=== PATIENT | female | born 1990 | race Caucasian/White ===

== ENCOUNTER → 2016-05-08 | Day surgery (SDC) | payer OTHER ==
[~2016-05-08] VITALS: Ht 162.6 cm; Wt 66.7 kg
[~2016-05-08] MED LIST: GABAPENTIN100 M2 PO; LO LOESTRIN FE1 EACH; SERTRALINE HCL50 MG PO
--- NOTE | 2016-05-08 18:46 | ED GENERAL ADULT ---
History of Present Illness General Chief Complaint: General Adult Stated Complaint: SIB ORIELLY ?MISCARRIAGE/DNC Source: patient Exam Limitations: no limitations Vital Signs & Intake/Output Vital Signs & Intake/Output Vital Signs Date Time Temp Pulse Resp B/P Pulse O2 O2 Flow FiO2 Ox Delivery Rate 05/08 2246 96.1 68 18 98/65 98 Room Air 05/08 2145 97.4 68 16 99/54 96 Room Air 05/08 1903 98 Room Air 05/08 1903 98.1 64 18 123/80 98 Room Air ED Intake and Output 05/09 0000 05/08 1200 Intake Total Output Total Balance Patient 147 lb Weight Allergies Coded Allergies: No Known Allergies (05/08/16) Reconcile Medications Gabapentin 100 MG CAPSULE 2 CAP PO TID ANXIETY (Reported) Norethindrone-E.estradiol-Iron (Lo Loestrin Fe 1-10 Tablet) (Unknown Strength) TABLET (Unknown Dose) UNKNOWN (Reported) Sertraline HCl 50 MG TABLET 3 TAB PO DAILY ANXIETY (Reported) Triage Nurses Notes Reviewed? yes HPI: Patient sent in to the emergency department in anticipation of a D&C. Patient hasn't missed after approximately 8 weeks of . Patient is . Patient complaining of pelvic cramping. There is no radiation. No aggravating or mitigating factors. She rates the pain as 7 out of 10. No dysuria. No headache. No blurred vision. Past History Travel History Traveled to [place] past 21 day No Medical History Any Pertinent Medical History? see below for history Psychiatric: depression Surgical History Surgical History: non-contributory Psychosocial History Tobacco Use: Never used ETOH Use: denies use Illicit Drug Use: denies illicit drug use Family History Hx Contributory? No Review of Systems Review of Systems Constitutional: Reports: no symptoms. EENTM: Reports: no symptoms. Respiratory: Reports: no symptoms. Cardiovascular: Reports: no symptoms. GI: Reports: see HPI, abdominal pain. Genitourinary: Reports: no symptoms. Musculoskeletal: Reports: no symptoms. Skin: Reports: no symptoms. Neurological/Psychological: Reports: no symptoms. Hematologic/Endocrine: Reports: no symptoms. Immunologic/Allergic: Reports: no symptoms. All Other Systems: Reviewed and Negative Physical Exam Physical Exam General Appearance: well developed/nourished, alert, awake Head: atraumatic, normal appearance Eyes: Bilateral: PERRL, EOMI. Ears, Nose, Throat: normal pharynx, normal ENT inspection Neck: normal inspection, supple Respiratory: normal breath sounds, chest non-tender, no respiratory distress, lungs clear Cardiovascular: regular rate/rhythm, normal peripheral pulses Gastrointestinal: normal bowel sounds, soft, no organomegaly Extremities: normal inspection, normal capillary refill, normal range of motion, no edema Neurologic/Psych: no motor/sensory deficits, awake, alert, oriented x 3, normal gait, normal mood/affect Lymphatic: no anterior cervical dori Core Measures ACS in differential dx? No CVA/TIA Diagnosis: No Severe Sepsis Present: No Septic Shock Present: No Progress Differential Diagnoses I considered the following diagnoses in my evaluation of the patient: [Missed ] Plan of Care: Orders Procedure Date/time Status CBC WITHOUT DIFFERENTIAL 05/08 1905 Complete TYPE & SCREEN (NOT X-MATCH) 05/08 1905 Complete Laboratory Tests 05/08/161919: CBC w Diff NO MAN DIFF REQ, RBC 4.63, MCV 84.8, MCH 28.6, RDW 13.0, MPV 8.5, Gran % 73.0, Lymphocytes % 19.5 L, Monocytes % 5.8, Eosinophils % 1.1, Basophils % 0.6, Absolute Granulocytes 8.1 H, Absolute Lymphocytes 2.2, Absolute Monocytes 0.7 H, Absolute Eosinophils 0.1, Absolute Basophils 0.1, PUBS MCHC 33.8 Initial ED EKG: none Departure Departure Disposition: STILL A PATIENT Condition: Stable Clinical Impression Primary Impression: Missed Referrals: PATIENT HAS NO PRIMARY CARE DR (PCP/Family) Departure Forms: Customer Survey General Discharge Information OR/GI Note Spoke With: INOCENCIO BLAND MD ED Treatment Decision: SARAVANAN CHANDRA requires urgent operative management or an emergent procedure that cannot be performed in the Emergency Room setting. Transport To: [facility] Critical Care Note Critical Care Note Critical Care Time: non-applicable
[2016-05-08 19:34] LABS: ABSOLUTE BASOPHIL COUNT 0.1 /CUMM (0.0-0.2); ABSOLUTE EOSINOPHIL COUNT 0.1 /CUMM (0.0-0.7); ABSOLUTE GRANULOCYTE CT 8.1 /CUMM (1.4-6.5); ABSOLUTE LYMPH COUNT 2.2 /CUMM (1.2-3.4); ABSOLUTE MONOCYTE COUNT 0.7 /CUMM (0.10-0.60); BASOPHIL % 0.6 % (0.0-2.0); EOSINOPHIL % 1.1 % (0-5); HEMATOCRIT 39.3 % (37-47); MEAN CORPUSCULAR HGB 28.6 PG (27.0-31.0); MEAN CORPUSCULAR HGB CONC 33.8 G/DL (33.0-37.0); MEAN CORPUSCULAR VOLUME 84.8 FL (81.0-99.0); MEAN PLATELET VOLUME 8.5 FL (7.4-10.4); PLATELET COUNT 241 /CUMM (130-400); RED BLOOD CELL CT 4.63 /CUMM (4.20-5.40); WHITE BLOOD CELL COUNT 11.1 /CUMM (4.8-10.8)
[2016-05-08 22:46] VITALS: BP 98/65
--- NOTE | 2016-05-09 00:10 | Operative Report ---
Operative/Inv Procedure Report Surgery Date: 05/08/16 Name of Procedure: Suction dilation and curettage Pre-Operative Diagnosis: Missed Post-Operative Diagnosis: Same Estimated Blood Loss: less than 50ml Surgeon/Compounder: INOCENCIO BLAND MD Anesthesia: moderate sedation IV Fluids: Lactated Ringer's Urine Output: 50 mL clear urine at the beginning of the procedure Specimens: Products of conception Complications: None Condition: Stable Operative Indication: 25-year-old, amenorrhea for 2 months,pt has vaginal bleeding and abdominal cramping pain, ultrasound showed no heart, gestational sac at lower uterine segment. Operative/Procedure Note Note: The patient was taken to the operating room where IV sedation was found to be adequate. Patient was then examined under anesthesia and found to have anteverted uterus,8 weeks in size. She was then placed in the dorsal lithotomy position and prepared and draped in the usual sterile fashion. A bivalve speculum was placed in the patient's vagina and the cervix noted to be 1 cm dilated ,a single-tooth tenaculum was then applied to the anterior lip of the cervix. The uterus sounded to 9 cm, and a size 7 suction curet advanced gently to the uterine fundus. The suction device was then activated and the curet rotated to clear the uterus of the products of conception. A sharp curetting was then performed until a gritty texture was noted. The suction curet was then reinserted to clear the uterus off or remaining products of conception. There was minimal bleeding noted and the tenaculum removed with good hemostasis noted. Patient tolerated the procedure well. The patient was taken to the recovery room in stable condition Findings: Anteverted uterus, 8 week in size, small amount of product of conception
== END ==
LOC: ERH 18:38 → STS 23:04 → ERH 23:05
PROVIDERS: Emergency Medicine
DX: O02.1 Missed abortion (principal)
CPT/HCPCS: 36415; 88261; 88305; 96374; 96375; J0131; J1100; J1170; J2250; J2405; J3010